=== PATIENT | male | born 1965 | race Caucasian/White ===

== ENCOUNTER 2018-08-03 20:16 | Emergency (ER) | payer SELFPAY ==
[2018-08-03 20:17] VITALS: BMI 36.0
[2018-08-03 20:42] VITALS: BP 151/93; PULSE 75; TEMP 98.6; O2SAT 98
[2018-08-03] MEDS ORDERED: Lidocaine 5% Patch TD STA (21:04)
[2018-08-03] MEDS ORDERED: Lidocaine 5% Patch TD ONE (21:18)
--- NOTE | 2018-08-03 21:43 | C.PDOC ---
Time Seen by Provider: 08/03/18 20:48 Chief Complaint (Nursing): Back Pain Past Medical History Vital Signs: Last Vital Signs Temp 98.6 F 08/03/18 20:34 Pulse 75 08/03/18 20:34 Resp 16 08/03/18 20:34 BP 151/93 H 08/03/18 20:34 Pulse Ox 98 08/03/18 20:34 Primary Care Provider: FAMILY PROVIDER,NO - Medical History PMH: Diabetes (borderline diet controlled), HTN, Hypercholesterolemia - [facility] Procedures INCIS W REM OF FORIEGN BODY OR DEV FROM SKIN & SUBCUT TISSUE (03/06/14) TETANUS TOXOID ADMINIST (03/06/14) Family History: States: Unknown Family Hx - Social History Hx Tobacco Use: No Hx Alcohol Use: No Hx Substance Use: No - Immunization History Hx Tetanus Toxoid Vaccination: No Hx Influenza Vaccination: No Hx Pneumococcal Vaccination: No ED Course And Treatment O2 Sat by Pulse Oximetry: 98 Disposition Counseled Patient/Family Regarding: Diagnosis, Need For Followup, Rx Given - Disposition Referrals: [facility] at [facility] [Outside] Disposition: HOME/ ROUTINE Disposition Time: 21:40 Condition: IMPROVED Additional Instructions: Continue meds as prescribed Rest ad Ice the area Follow up in clinic if pain persists Return to ED if symptoms worsen Prescriptions: diaZEpam [Valium] 2 mg PO TID PRN #9 tab PRN Reason: Muscle Spasm Lidocaine 5% [Lidoderm] 1 ea TD DAILY PRN #30 patch PRN Reason: Pain, Moderate (4-7) Naproxen [Naprosyn] 500 mg PO BID #30 tablet Instructions: Torticollis (DC) - Clinical Impression Clinical Impression: Neck pain, Torticollis
--- NOTE | 2018-08-03 21:48 | C.PDOC ---
History Of Present Illness 52 year old male with a history of diabetes presents to the ED with complaints of left-sided neck pain for the past 3 days which has gotten progressively worse. Patient states that today he was placing Icy Hot patches on the area with little relief. He claims that the pain is better at rest, but is worse with movement especially while driving his car and turning his head with a severity of 8/10. Patient states that he has had similar episodes since February but eventually subsided. He denies trauma, other injuries to that area, fever, chills, chest pain, shortness of breath, nausea, vomiting, abdominal pain, and diarrhea. Time Seen by Provider: 08/03/18 20:48 Chief Complaint (Nursing): Back Pain History Per: Patient History/Exam Limitations: no limitations Onset/Duration Of Symptoms: Days (3) Current Symptoms Are (Timing): Worse Quality Of Discomfort: "Pain" Pain Scale Rating Of: 8 Previous Symptoms: Neck Pain Exacerbating Factor(s): Turning, Movement Past Medical History Reviewed: Historical Data, Nursing Documentation, Vital Signs Vital Signs: Last Vital Signs Temp 98.6 F 08/03/18 20:34 Pulse 75 08/03/18 20:34 Resp 16 08/03/18 20:34 BP 151/93 H 08/03/18 20:34 Pulse Ox 98 08/03/18 20:34 Primary Care Provider: FAMILY PROVIDER,NO - Medical History PMH: Diabetes (borderline diet controlled), HTN, Hypercholesterolemia - [facility] Procedures INCIS W REM OF FORIEGN BODY OR DEV FROM SKIN & SUBCUT TISSUE (03/06/14) TETANUS TOXOID ADMINIST (03/06/14) Family History: States: Unknown Family Hx - Social History Hx Tobacco Use: No Hx Alcohol Use: No Hx Substance Use: No - Immunization History Hx Tetanus Toxoid Vaccination: No Hx Influenza Vaccination: No Hx Pneumococcal Vaccination: No Review Of Systems Constitutional: Negative for: Fever, Chills Respiratory: Negative for: Shortness of Breath Gastrointestinal: Negative for: Nausea, Vomiting, Abdominal Pain, Diarrhea Musculoskeletal: Positive for: Neck Pain (left side ). Negative for: Shoulder Pain, Arm Pain Skin: Negative for: Rash, Bruising Neurological: Negative for: Weakness, Numbness Physical Exam - Physical Exam Appears: Well, Non-toxic, No Acute Distress Skin: Normal Color, Warm, Dry, No Ecchymosis, No Other (erythematous) Head: Atraumatic, Normacephalic Eye(s): bilateral: Normal Inspection Neck: Decreased ROM (due to pain), Trachea Midline, Paracervical Tenderness (left side tender to palpation), Supple Lymphatic: No Adenopathy Chest: Symmetrical Cardiovascular: Rhythm Regular Respiratory: Normal Breath Sounds, No Accessory Muscle Use, No Wheezing Gastrointestinal/Abdominal: Soft, No Tenderness Back: No CVA Tenderness Extremity: Bilateral: Atraumatic, Normal ROM Neurological/Psych: Oriented x3, Normal Speech, Normal Cognition, Normal Motor, Normal Sensation Gait: Steady ED Course And Treatment O2 Sat by Pulse Oximetry: 98 (RA) Medical Decision Making Medical Decision Making: Impression: Torticollis Plan: Valium 2 mg PO Toradol 60 mg IM Lidoderm 1 ea TD Reassessment: patient notes significant improvement and is ready for discharge Disposition Counseled Patient/Family Regarding: Diagnosis, Need For Followup, Rx Given - Disposition Referrals: [facility] [Outside] Disposition: HOME/ ROUTINE Disposition Time: 21:45 Condition: IMPROVED Additional Instructions: Continue meds as prescribed Rest ad Ice the area Follow up in clinic if pain persists Return to ED if symptoms worsen Prescriptions: diaZEpam [Valium] 2 mg PO TID PRN #9 tab PRN Reason: Muscle Spasm Lidocaine 5% [Lidoderm] 1 ea TD DAILY PRN #30 patch PRN Reason: Pain, Moderate (4-7) Naproxen [Naprosyn] 500 mg PO BID #30 tablet Instructions: Torticollis (DC) Forms: [employer] (Welsh) - Clinical Impression Clinical Impression: Neck pain, Torticollis - PA / BENEFITS TECHNICIAN / Resident Statement MD/DO has reviewed & agrees with the documentation as recorded. - Scribe Statement The provider has reviewed the documentation as recorded by the Scribe (Kerry Birch) All medical record entries made by the Scribe were at my direction and personally dictated by me. I have reviewed the chart and agree that the record accurately reflects my personal performance of the history, physical exam, medical decision making, and the department course for this patient. I have also personally directed, reviewed, and agree with the discharge instructions and disposition.
[2018-08-03 21:52] VITALS: RESP 20
== END 2018-08-03 21:51 | disposition home or self-care (01) ==
LOC: C.ER 20:16
DX: M43.6 Torticollis (principal); M54.2 Cervicalgia
CPT/HCPCS: 82948; 96372; 99283; J1885